=== PATIENT | female | born 1965 | race Caucasian/White ===

== ENCOUNTER 2018-01-16 20:21 | Emergency (ER) | END 2018-01-17 00:50 | disposition home or self-care (01) ==

== ENCOUNTER 2019-01-09 19:40 | Inpatient (IN) | payer MEDICAID ==
[~2019-01-09] VITALS: Ht 162.6 cm; Wt 121.9 kg
[2019-01-09] MEDS ORDERED: PANTOPRAZOLE IV 80 MG in SOD CHLORIDE 0.9% 100 ML IV STA (21:00)
[2019-01-09] MEDS ORDERED: PANTOPRAZOLE IV 80 MG in SOD CHLORIDE 0.9% 100 ML IVPB STA (21:00)
[2019-01-09] MEDS ORDERED: ACETAMINOPHEN 325 MG TAB PO ONE (22:00)
[2019-01-09] MEDS ORDERED: ONDANSETRON 4 MG INJ IV PRN ×2 (22:30→23:30)
[2019-01-09] MEDS ORDERED: ACETAMINOPHEN 325 MG TAB PO PRN (22:30)
--- NOTE | 2019-01-09 22:33 | ERD ---
ER Documentation Chief Complaint Chief Complaint ABD PAIN AND SWELLING WITH INTERMITTENT HEMATEMESIS TODAY. HPI 53-year-old female presents with family members for persistent epigastric abdominal pain and vomiting. The patient has had 2-3 episodes of gross hematemesis with clots over the past 24 hours. She denies melena. Patient describes a history of peptic ulcer disease, no NSAID abuse or alcohol abuse. She denies any chest pain or pressure. No fevers or chills. Pain is noted to be 5 out of 10 and sharp. ROS All systems reviewed and are negative except as per history of present illness. Allergies Allergies: Coded Allergies: ceftriaxone sodium (Verified Allergy, Intermediate, SWELLING, 07/07/13) Penicillins (Verified Allergy, Mild, SWOLLEN, 07/07/13) Uncoded Allergies: ROCHPHIN (Allergy, CANT BREATH, 05/05/13) PMhx/Soc History of Surgery: Yes (CHOLECYSTECTOMY) Anesthesia Reaction: No Hx Neurological Disorder: No Hx Respiratory Disorders: No Hx Cardiac Disorders: No Hx Psychiatric Problems: No Hx Miscellaneous Medical Probl: No Hx Alcohol Use: No Hx Substance Use: No Hx Tobacco Use: No Smoking Status: Never smoker FmHx Family History: No diabetes Physical Exam Vitals Vital Signs Date Temp Pulse Resp B/P (MAP) Pulse Ox O2 O2 Flow FiO2 Time Delivery Rate 01/09/19 85 18 143/84 100 Room Air 20:45 (103) 01/09/19 98.0 90 18 155/77 98 19:53 (103) Physical Exam General: Well developed, well nourished, no acute distress Head: Normocephalic, atraumatic. Eyes: Pupils equally reactive, EOM intact ENT: Moist mucous membranes Neck: Supple, no lymphadenopathy Respiratory: Lungs clear bilaterally, no distress Cardiovascular: RRR, no murmurs, rubs, or gallops Abdominal: Soft, tenderness to the epigastrium, non-distended, no peritoneal signs : Deferred MSK: No edema, no unilateral swelling, 5/5 strength Neurologic: Alert and oriented, moving all extremities, normal speech, no focal weakness, no cerebellar signs Skin: No rash Psych: Normal mood Result Diagram: 01/09/19211701/09/192117 Results 24 hrs Laboratory Tests Test 01/09/19 21:18 White Blood Count 10.1 10^3/ul Red Blood Count 4.93 10^6/ul Hemoglobin 13.6 g/dl Hematocrit 41.2 % Mean Corpuscular Volume 83.6 fl Mean Corpuscular Hemoglobin 27.6 pg Mean Corpuscular Hemoglobin Concent 33.0 g/dl Red Cell Distribution Width 13.8 % Platelet Count 321 10^3/UL Mean Platelet Volume 10.0 fl Immature Granulocytes % 0.500 % Neutrophils % 57.6 % Lymphocytes % 32.0 % Monocytes % 7.4 % Eosinophils % 2.1 % Basophils % 0.4 % Nucleated Red Blood Cells % 0.0 /100WBC Immature Granulocytes # 0.050 10^3/ul Neutrophils # 5.8 10^3/ul Lymphocytes # 3.2 10^3/ul Monocytes # 0.8 10^3/ul Eosinophils # 0.2 10^3/ul Basophils # 0.0 10^3/ul Nucleated Red Blood Cells # 0.0 10^3/ul Prothrombin Time 11.8 Sec Prothrombin Time Ratio 0.9 INR International Normalized Ratio 0.86 Activated Partial Thromboplast Time 28.5 Sec Sodium Level 140 mmol/L Potassium Level 4.1 mmol/L Chloride Level 105 mmol/L Carbon Dioxide Level 29 mmol/L Anion Gap 6 Blood Urea Nitrogen 12 mg/dl Creatinine 0.52 mg/dl Est Glomerular Filtrat Rate mL/min > 60 mL/min Glucose Level 113 mg/dl Calcium Level 10.2 mg/dl Total Bilirubin 0.2 mg/dl Direct Bilirubin 0.00 mg/dl Indirect Bilirubin 0.2 mg/dl Aspartate Amino Transf (AST/SGOT) 22 IU/L Alanine Aminotransferase (ALT/SGPT) 22 IU/L Alkaline Phosphatase 150 IU/L Troponin I < 0.012 ng/ml Total Protein 7.6 g/dl Albumin 4.0 g/dl Globulin 3.60 g/dl Albumin/Globulin Ratio 1.11 Current Medications Medications Dose Sig/Fede Start Time Status Last (Trade) Ordered Route PRN Stop Time Admin Dose Reason Admin Pantoprazole 100 ml @ ONCE STAT 01/09/19 DC 01/09/19 80 mg/Sodium 400 mls/hr IVPB 21:00 21:33 Chloride 01/09/19 21:14 Pantoprazole 100 ml @ ONCE STAT 01/09/19 01/09/19 80 mg/Sodium 10 mls/hr IV 21:00 21:32 Chloride 01/10/19 06:59 650 mg ONCE ONCE 01/09/19 DC 01/09/19 Acetaminophen PO 22:00 22:00 (Tylenol 01/09/19 22:01 Tab) Procedures/MDM EKG, MONITORS, & DIAGNOSTIC IMAGING: EKG: I reviewed and interpreted a 12-lead EKG. Rhythm: Normal sinus rhythm ST Changes: No contiguous ST segment elevations T waves: No contiguous T wave inversions Impression: No evidence of acute cardiac ischemia LAB INTERPRETATION: I reviewed the laboratory testing and it shows no evidence of acute process MEDICAL DECISION MAKING: The patient has gross hematemesis with epigastric abdominal pain raising the concern for bleeding ulcer. No melena present. Patient is hemodynamically stable. While the patient is hemodynamically stable with a normal hemoglobin and normal being her creatinine ratio I am concerned about the patient's gross hematemesis with known history of peptic ulcer disease. I believe given the patient's limited access to primary care inpatient hospitalization for serial hemoglobin values, GI consultation and endoscopy would be most appropriate. ER COURSE: * PPI bolus and drip initiated. Patient is hemodynamic is stable does not require blood transfusion. CONSULTATION: GI consultation to be performed by admitting team DISPOSITION PLAN: Accepting care team and consultations: I discussed the current laboratory data, diagnostic imaging and emergency care provided. Admitting team: Dr. Tan . Admitting team indication: Insurance directed Departure Diagnosis: Primary Impression: Hematemesis Nausea presence: with nausea Qualified Codes: K92.0 - Hematemesis Additional Impression: Upper GI bleeding Condition: Stable PALOMA ESPINO MD Jan 09, 2019 22:33
[2019-01-09] MEDS ORDERED: NACL 0.9% 3 ML SYG IV SCH (23:30)
--- NOTE | 2019-01-09 23:31 | HP ---
Date/Time of Note Date/Time of Note DATE: 01/09/19 TIME: 23:31 Assessment/Plan VTE Prophylaxis SCD contraindicated: low risk/ambulating Pharmacological prophylaxis: NA/contraindicated Pharm contraindication: bleeding Lines/Catheters IV Catheter Type (from Nrsg): Saline Lock Assessment/Plan Assessment/Plan 1. Hematemesis -Suspect from bleeding gastric ulcer -PPI -GI consult 2. Epigastric abdominal pain: See #1 3. Morbid obesity: BMI 46 -Weight reduction advised Result Diagram: 01/09/19211701/09/192117 Results 24hrs Laboratory Tests Test 01/09/19 21:18 White Blood Count 10.1 Red Blood Count 4.93 Hemoglobin 13.6 Hematocrit 41.2 Mean Corpuscular Volume 83.6 Mean Corpuscular Hemoglobin 27.6 L Mean Corpuscular Hemoglobin Concent 33.0 Red Cell Distribution Width 13.8 Platelet Count 321 Mean Platelet Volume 10.0 Immature Granulocytes % 0.500 H Neutrophils % 57.6 Lymphocytes % 32.0 Monocytes % 7.4 Eosinophils % 2.1 Basophils % 0.4 Nucleated Red Blood Cells % 0.0 Immature Granulocytes # 0.050 H Neutrophils # 5.8 Lymphocytes # 3.2 H Monocytes # 0.8 Eosinophils # 0.2 Basophils # 0.0 Nucleated Red Blood Cells # 0.0 Prothrombin Time 11.8 L Prothrombin Time Ratio 0.9 INR International Normalized Ratio 0.86 Activated Partial Thromboplast Time 28.5 Sodium Level 140 Potassium Level 4.1 Chloride Level 105 Carbon Dioxide Level 29 Anion Gap 6 Blood Urea Nitrogen 12 Creatinine 0.52 Est Glomerular Filtrat Rate mL/min > 60 Glucose Level 113 Calcium Level 10.2 Total Bilirubin 0.2 Direct Bilirubin 0.00 Indirect Bilirubin 0.2 Aspartate Amino Transf (AST/SGOT) 22 Alanine Aminotransferase (ALT/SGPT) 22 Alkaline Phosphatase 150 H Troponin I < 0.012 Total Protein 7.6 Albumin 4.0 Globulin 3.60 H Albumin/Globulin Ratio 1.11 HPI/ROS Admit Date/Time Admit Date/Time Jan 09, 2019 at 22:30 Hx of Present Illness This is a 53-year-old female with a history of hypertension, CVA, gastritis who presents the ER complaining of abdominal pain and vomiting blood. Abdominal pain is mainly localized in the epigastric area with radiation to her back. She also reported vomiting blood x 2. Reported history of hematemesis about 8 years ago. At that time she underwent EGD was a finding of gastritis. Daughter is also at the bedside who helped with the history taking, although with very minimal input. Who presents the ER, vitals stable. Hemoglobin 13.6. PMH/Family/Social Past Medical History Medical History: other (See HPI) Medications Current Medications Pantoprazole 80 mg/Sodium Chloride 100 ml @ 10 mls/hr ONCE STAT IV Last administered on 01/09/19at 21:32; Admin Dose 10 MLS/HR; Start 01/09/19 at 21:00; Stop 01/10/19 at 06:59 Ondansetron HCl (Zofran Inj) 4 mg BRIDGE ORDER PRN IV NAUSEA/VOMITING; Start 01/09/19 at 22:30; Stop 01/10/19 at 22:29 Acetaminophen (Tylenol Tab) 650 mg ER BRIDGE PRN PO .MILD PAIN 1-3 OR TEMP; Start 01/09/19 at 22:30; Stop 01/10/19 at 22:29 Coded Allergies: ceftriaxone sodium (Verified Allergy, Intermediate, SWELLING, 07/07/13) Penicillins (Verified Allergy, Mild, SWOLLEN, 07/07/13) Uncoded Allergies: ROCHPHIN (Allergy, CANT BREATH, 05/05/13) Past Surgical History Past Surgical Hx: other (See HPI) Family History Significant Family History: no pertinent family hx Social History Alcohol Use: none Smoking Status: Never smoker Drug Use: none Exam/Review of Systems Vital Signs Vitals Vital Signs Date Temp Pulse Resp B/P (MAP) Pulse Ox O2 O2 Flow FiO2 Time Delivery Rate 01/09/19 98.0 62 19 133/82 99 Room Air 23:06 (99) Exam Constitutional: other (Patient lying in bed. Appears uncomfortable) Head: normocephalic, atraumatic Eyes: EOMI, PERRL Respiratory: clear to auscultation, normal air movement Cardiovascular: regular rate and rhythm, nl pulses Gastrointestinal: soft, other (Epigastric abdominal pain with deep palpation) Extremities: normal pulses HYACINTH VEGA MD Jan 09, 2019 23:31
[2019-01-09 23:50] VITALS: BP 129/62; PULSE 77; RESP 18
[2019-01-10 00:02] VITALS: Ht 162.6 cm; Wt 121.9 kg
[2019-01-10] MEDS ORDERED: OMEP40CA6 PO (00:22)
[2019-01-10] MEDS ORDERED: ALBU90AE INHALATION (00:22)
[2019-01-10] MEDS: morphine 2 MG INJ IV PRN ×3 (00:38→23:22)
[2019-01-10] MEDS: DEXTROSE 5%-0.45% NACL 1,000 ML IV SCH ×4 (00:39→21:34)
[2019-01-10] MEDS: PANTOPRAZOLE 40 MG INJ IV SCH ×2 (06:16→18:18)
[2019-01-10 08:25] VITALS: BP 132/76; PULSE 87; RESP 18
[2019-01-10] MEDS ORDERED: LIDOCAINE/MYLANTA 40 ML BTL PO ONE (10:00)
--- NOTE | 2019-01-10 12:12 | PN ---
Date/Time of Note Date/Time of Note DATE: 01/10/19 TIME: 12:05 Assessment/Plan VTE Prophylaxis Risk score (from Ns)>0 risk: 2 SCD applied (from [facility]): No SCD contraindicated: other Pharmacological prophylaxis: NA/contraindicated Pharm contraindication: bleeding Lines/Catheters IV [facility] Type (from [facility]): Peripheral IV Urinary Cath still in place: No Assessment/Plan Hospital Course S: Per nursing staff patient not having any signs of hematemesis presently. Still waiting for GI consult, and presently patient off the floor at CT scan. O: VS - see below PE: -Unable to be performed today because patient presently off the floor at CT scan Assessment/Plan: 53-year-old female prior history of gastritis and PUD, presents with epigastric pain and hematemesis. 1. Hematemesis -Suspect from bleeding gastric ulcer, given patient's history. Hemoglobin is stable. -For now continue to monitor and continue PPI -Follow-up recommendations from GI consult -Follow-up results of CT abdomen pelvis 2. Epigastric abdominal pain: See #1 3. Morbid obesity: BMI 46 -Counseled on weight reduction -We will also get PT consult Result Diagram: 01/10/19 0446 01/10/19 0446 Results 24hrs Laboratory Tests Test 01/09/19 21:18 01/10/19 04:46 White Blood Count 10.1 9.0 Red Blood Count 4.93 4.76 Hemoglobin 13.6 12.8 Hematocrit 41.2 39.9 Mean Corpuscular Volume 83.6 83.8 Mean Corpuscular Hemoglobin 27.6 L 26.9 L Mean Corpuscular Hemoglobin Concent 33.0 32.1 Red Cell Distribution Width 13.8 13.8 Platelet Count 321 320 Mean Platelet Volume 10.0 10.2 Immature Granulocytes % 0.500 H 0.400 Neutrophils % 57.6 56.2 Lymphocytes % 32.0 33.0 Monocytes % 7.4 7.1 Eosinophils % 2.1 3.0 Basophils % 0.4 0.3 Nucleated Red Blood Cells % 0.0 0.0 Immature Granulocytes # 0.050 H 0.040 H Neutrophils # 5.8 5.0 Lymphocytes # 3.2 H 3.0 H Monocytes # 0.8 0.6 Eosinophils # 0.2 0.3 Basophils # 0.0 0.0 Nucleated Red Blood Cells # 0.0 0.0 Prothrombin Time 11.8 L Prothrombin Time Ratio 0.9 INR International Normalized Ratio 0.86 Activated Partial Thromboplast Time 28.5 Sodium Level 140 142 Potassium Level 4.1 3.8 Chloride Level 105 104 Carbon Dioxide Level 29 30 Anion Gap 6 8 Blood Urea Nitrogen 12 11 Creatinine 0.52 0.49 Est Glomerular Filtrat Rate mL/min > 60 > 60 Glucose Level 113 120 Calcium Level 10.2 9.6 Total Bilirubin 0.2 0.4 Direct Bilirubin 0.00 0.00 Indirect Bilirubin 0.2 0.4 Aspartate Amino Transf (AST/SGOT) 22 24 Alanine Aminotransferase (ALT/SGPT) 22 21 Alkaline Phosphatase 150 H 117 Troponin I < 0.012 Total Protein 7.6 6.8 Albumin 4.0 3.6 Globulin 3.60 H 3.20 Albumin/Globulin Ratio 1.11 1.12 Phosphorus Level 3.5 Magnesium Level 2.1 Exam/Review of Systems Exam Vitals Vital Signs Date Temp Pulse Resp B/P (MAP) Pulse Ox O2 O2 Flow FiO2 Time Delivery Rate 01/10/19 98.0 87 18 132/76 94 Room Air 08:25 (94) Intake and Output 01/09/19 01/09/19 01/10/19 1515:00 23:00 07:00 IntakeIntake Total 920 ml BalanceBalance 920 ml Results Results 24hrs Laboratory Tests Test 01/09/19 21:18 01/10/19 04:46 White Blood Count 10.1 9.0 Red Blood Count 4.93 4.76 Hemoglobin 13.6 12.8 Hematocrit 41.2 39.9 Mean Corpuscular Volume 83.6 83.8 Mean Corpuscular Hemoglobin 27.6 L 26.9 L Mean Corpuscular Hemoglobin Concent 33.0 32.1 Red Cell Distribution Width 13.8 13.8 Platelet Count 321 320 Mean Platelet Volume 10.0 10.2 Immature Granulocytes % 0.500 H 0.400 Neutrophils % 57.6 56.2 Lymphocytes % 32.0 33.0 Monocytes % 7.4 7.1 Eosinophils % 2.1 3.0 Basophils % 0.4 0.3 Nucleated Red Blood Cells % 0.0 0.0 Immature Granulocytes # 0.050 H 0.040 H Neutrophils # 5.8 5.0 Lymphocytes # 3.2 H 3.0 H Monocytes # 0.8 0.6 Eosinophils # 0.2 0.3 Basophils # 0.0 0.0 Nucleated Red Blood Cells # 0.0 0.0 Prothrombin Time 11.8 L Prothrombin Time Ratio 0.9 INR International Normalized Ratio 0.86 Activated Partial Thromboplast Time 28.5 Sodium Level 140 142 Potassium Level 4.1 3.8 Chloride Level 105 104 Carbon Dioxide Level 29 30 Anion Gap 6 8 Blood Urea Nitrogen 12 11 Creatinine 0.52 0.49 Est Glomerular Filtrat Rate mL/min > 60 > 60 Glucose Level 113 120 Calcium Level 10.2 9.6 Total Bilirubin 0.2 0.4 Direct Bilirubin 0.00 0.00 Indirect Bilirubin 0.2 0.4 Aspartate Amino Transf (AST/SGOT) 22 24 Alanine Aminotransferase (ALT/SGPT) 22 21 Alkaline Phosphatase 150 H 117 Troponin I < 0.012 Total Protein 7.6 6.8 Albumin 4.0 3.6 Globulin 3.60 H 3.20 Albumin/Globulin Ratio 1.11 1.12 Phosphorus Level 3.5 Magnesium Level 2.1 Medications Medication Current Medications Ondansetron HCl (Zofran Inj) 4 mg BRIDGE ORDER PRN IV NAUSEA/VOMITING; Start 01/09/19 at 22:30; Stop 01/10/19 at 22:29 Acetaminophen (Tylenol Tab) 650 mg ER BRIDGE PRN PO .MILD PAIN 1-3 OR TEMP; Start 01/09/19 at 22:30; Stop 01/10/19 at 22:29 Dextrose/Sodium Chloride 1,000 ml @ 100 mls/hr Q10H IV Last administered on 01/10/19at 11:26; Admin Dose 100 MLS/HR; Start 01/09/19 at 23:29 IV Flush (NS 3 ml) 3 ml PER PROTOCOL IV ; Start 01/09/19 at 23:30 Ondansetron HCl (Zofran Inj) 4 mg Q6H PRN IV NAUSEA/VOMITING; Start 01/09/19 at 23:30 Morphine Sulfate (morphine) 2 mg Q4H PRN IV .SEVERE PAIN 7-10 Last administered on 01/10/19at 00:38; Admin Dose 2 MG; Start 01/09/19 at 23:30 Pantoprazole (Protonix Iv) 40 mg BID@0600,1800 IV Last administered on 01/10/19at 06:16; Admin Dose 40 MG; Start 01/10/19 at 06:00 THEE JACOBO Jan 10, 2019 12:12
[2019-01-10 14:39] VITALS: BP 123/77; PULSE 85; RESP 18
[2019-01-10 19:50] VITALS: BP 121/55; PULSE 83; RESP 18
[2019-01-11 00:39] VITALS: BP 102/55; PULSE 84; RESP 18
[2019-01-11] MEDS: PANTOPRAZOLE 40 MG INJ IV SCH ×2 (05:21→19:00)
[2019-01-11] MEDS: DEXTROSE 5%-0.45% NACL 1,000 ML IV SCH ×2 (07:31→18:56)
[2019-01-11 07:50] VITALS: BP 121/62; PULSE 83; RESP 15
--- NOTE | 2019-01-11 12:15 | PN ---
Date/Time of Note Date/Time of Note DATE: 01/11/19 TIME: 12:13 Assessment/Plan VTE Prophylaxis Risk score (from Ns)>0 risk: 1 SCD applied (from Ns): No SCD contraindicated: other Pharmacological prophylaxis: NA/contraindicated Pharm contraindication: bleeding Lines/Catheters IV [facility] Type (from [facility]): Peripheral IV Urinary Cath still in place: No Assessment/Plan Hospital Course S: Per nursing staff patient not having any signs of hematemesis presently. Still waiting for GI consult, and presently patient off the floor at CT scan. O: VS - see below PE: Constitutional: other (Patient lying in bed. Family at the bedside) Head: normocephalic, atraumatic Eyes: EOMI, PERRL Respiratory: clear to auscultation, normal air movement Cardiovascular: regular rate and rhythm, nl pulses Gastrointestinal: soft, other (some epigastric abdominal pain with deep palpation) Extremities: normal pulses CT scan abdomen pelvis January 10, 2019: IMPRESSION: 1. Status post cholecystectomy. 2. No evidence of bowel obstruction, mass, lymphadenopathy, or acute inflammatory process. Assessment/Plan: 53-year-old female prior history of gastritis and PUD, presents with epigastric pain and hematemesis. 1. Hematemesis -no issues noted while here in the hospital. Hemoglobin has been stable. Suspect symptoms possibly from bleeding gastric ulcer, given patient's history. -For now continue to monitor and continue PPI -Follow-up recommendations from GI consult -still waiting for an official consult 2. Epigastric abdominal pain: See #1 3. Morbid obesity: BMI 46 -Counseled on weight reduction -Follow-up PT consult Result Diagram: 01/10/19 0446 01/10/19 0446 Exam/Review of Systems Exam Vitals Vital Signs Date Temp Pulse Resp B/P (MAP) Pulse Ox O2 O2 Flow FiO2 Time Delivery Rate 01/11/19 98.5 83 15 121/62 96 Room Air 07:50 (81) Intake and Output 01/10/19 01/10/19 01/11/19 1515:00 23:00 07:00 IntakeIntake Total 1300 ml 750 ml OutputOutput Total 400 ml BalanceBalance 1300 ml 350 ml Medications Medication Current Medications Dextrose/Sodium Chloride 1,000 ml @ 100 mls/hr Q10H IV Last administered on 01/11/19at 07:31; Admin Dose 100 MLS/HR; Start 01/09/19 at 23:29 IV Flush (NS 3 ml) 3 ml PER PROTOCOL IV ; Start 01/09/19 at 23:30 Ondansetron HCl (Zofran Inj) 4 mg Q6H PRN IV NAUSEA/VOMITING; Start 01/09/19 at 23:30 Morphine Sulfate (morphine) 2 mg Q4H PRN IV .SEVERE PAIN 7-10 Last administered on 01/10/19at 23:22; Admin Dose 2 MG; Start 01/09/19 at 23:30 Pantoprazole (Protonix Iv) 40 mg BID@0600,1800 IV Last administered on 01/11/19 05:21; Admin Dose 40 MG; Start 01/10/19 at 06:00 THEE JACOBO Jan 11, 2019 12:15
[2019-01-11 13:58] VITALS: BP 104/84; PULSE 77; RESP 15
--- NOTE | 2019-01-11 18:16 | CONS ---
Assessment/Plan Assessment/Plan Assessment/Plan (Daily) Assessment: Hematemesis - likely 2/2 gi bleeding or gastric ulcer Constipation HTN CVA Plan: Will plan for EGD on Sunday. Discussed with the patient the need for EGD upper endoscopy to evaluate her epigastric pain and hematemesis. Discussed benefits, alternatives, risks and potential complications of procedure. She is agreeable to proceed. Continue protonix Add Carafate QID Monitor CBC, thus far no significant anemia. Transfuse for Hgb less than 7.5. Colace BID for constipation Continue to monitor closely. Patient seen in collaboration with Dr. Diamond CC: REBECCA IDAMOND ; Consultation Date/Type/Reason Admit Date/Time Jan 09, 2019 at 22:30 Date of Consultation: Jan 11, 2019 Type of Consult gastroenterology Reason for Consultation hematemesis with concern for gi bleeding Requesting Provider: THEE JACOBO Date/Time of Note DATE: 01/11/19 TIME: 18:02 Hx of Present Illness 53 y/o woman with a history of HTN, CVA, gastritis and PUD who presents with 2 episodes of hematemesis since yesterday. She reports she usually takes omeprazole for epigastric pain, and she also take 600 mg twic daily of ibuprofen when she has abdominal pain. She reports constipation and has not had a bowel movement since last . She otherwise denies any rectal bleeding. She last had an EGD and colonoscopy about 8 years ago. She reports a prior history of cholecystectomy and 2 C-sections. She denies any fevers, chills, weakness, fatigue or palpitations. Constitutional: no complaints Eyes: no complaints ENT: no complaints Respiratory: no complaints Cardiovascular: no complaints Gastrointestinal: pain, constipation, nausea, vomiting Genitourinary: no complaints Musculoskeletal: no complaints Skin: no complaints Neurologic: no complaints Psychological: no complaints, nl mood/affect Past Medical History Medical History: other (See HPI) Home Meds Reported Medications Albuterol Sulfate (Proair Respiclick) 90 Mcg Aer.pow.ba, 2 PUFFS INHALATION Q6 PRN for SHORTNESS OF BREATH, #1 BOTTLE 01/10/19 Omeprazole* (Omeprazole*) 40 Mg Capsule.dr, 40 MG PO DAILY, #30 CAP 01/10/19 Medications Current Medications Dextrose/Sodium Chloride 1,000 ml @ 100 mls/hr Q10H IV Last administered on 01/11/19at 07:31; Admin Dose 100 MLS/HR; Start 01/09/19 at 23:29 IV Flush (NS 3 ml) 3 ml PER PROTOCOL IV ; Start 01/09/19 at 23:30 Ondansetron HCl (Zofran Inj) 4 mg Q6H PRN IV NAUSEA/VOMITING; Start 01/09/19 at 23:30 Morphine Sulfate (morphine) 2 mg Q4H PRN IV .SEVERE PAIN 7-10 Last administered on 01/10/19at 23:22; Admin Dose 2 MG; Start 01/09/19 at 23:30 Pantoprazole (Protonix Iv) 40 mg BID@0600,1800 IV Last administered on 01/11/19at 05:21; Admin Dose 40 MG; Start 01/10/19 at 06:00 Allergies: Coded Allergies: ceftriaxone sodium (Verified Allergy, Intermediate, SWELLING, 07/07/13) Penicillins (Verified Allergy, Mild, SWOLLEN, 07/07/13) Uncoded Allergies: ROCHPHIN (Allergy, CANT BREATH, 05/05/13) Past Surgical History Past Surgical Hx: other (See HPI) Social History Alcohol Use: none Smoking Status: Never smoker Drug Use: none Exam/Review of Systems Exam Vitals Vital Signs Date Temp Pulse Resp B/P (MAP) Pulse Ox O2 O2 Flow FiO2 Time Delivery Rate 01/11/19 98.5 77 15 104/84 100 Room Air 13:58 (91) Intake and Output 01/10/19 01/10/19 01/11/19 1515:00 23:00 07:00 IntakeIntake Total 1300 ml 750 ml OutputOutput Total 400 ml BalanceBalance 1300 ml 350 ml Constitutional: alert, oriented, well developed Psych: no complaints, nl mood/affect Head: normocephalic, atraumatic Eyes: nl conjunctiva ENMT: nl external ears & nose Neck: supple Respiratory: clear to auscultation, normal air movement Cardiovascular: regular rate and rhythm, nl pulses Gastrointestinal: soft, non-tender, other (rotund) Musculoskeletal: nl extremities to inspection Extremities: normal pulses Neurological: nl mental status Results Result Diagram: 01/10/19 0446 01/10/[address] scan abdomen pelvis 01/10/19: IMPRESSION: 1. Status post cholecystectomy. 2. No evidence of bowel obstruction, mass, lymphadenopathy, or acute inflammatory process. Medications Medication Current Medications Dextrose/Sodium Chloride 1,000 ml @ 100 mls/hr Q10H IV Last administered on 01/11/19at 07:31; Admin Dose 100 MLS/HR; Start 01/09/19 at 23:29 IV Flush (NS 3 ml) 3 ml PER PROTOCOL IV ; Start 01/09/19 at 23:30 Ondansetron HCl (Zofran Inj) 4 mg Q6H PRN IV NAUSEA/VOMITING; Start 01/09/19 at 23:30 Morphine Sulfate (morphine) 2 mg Q4H PRN IV .SEVERE PAIN 7-10 Last administered on 01/10/19at 23:22; Admin Dose 2 MG; Start 01/09/19 at 23:30 Pantoprazole (Protonix Iv) 40 mg BID@0600,1800 IV Last administered on 01/11/19at 05:21; Admin Dose 40 MG; Start 01/10/19 at 06:00 DONNA GUTIERREZ NP Jan 11, 2019 18:13
[2019-01-11] MEDS ORDERED: POLYETHYLENE GLYCOL 17 GM PACKET PO PRN (18:30)
[2019-01-11] MEDS: morphine 2 MG INJ IV PRN (19:44)
[2019-01-11 20:06] VITALS: BP 118/75; PULSE 87; RESP 18
[2019-01-11] MEDS: DOCUSATE SODIUM 100 MG CAP PO SCH (21:22)
[2019-01-12 02:55] VITALS: BP 141/70; PULSE 82; RESP 18
[2019-01-12] MEDS: DEXTROSE 5%-0.45% NACL 1,000 ML IV SCH ×2 (06:10→18:13)
[2019-01-12] MEDS: PANTOPRAZOLE 40 MG INJ IV SCH ×2 (06:10→18:13)
[2019-01-12 07:28] VITALS: BP 139/64; PULSE 81; RESP 15
[2019-01-12] MEDS: DOCUSATE SODIUM 100 MG CAP PO SCH ×2 (09:23→22:24)
--- NOTE | 2019-01-12 11:40 | PN ---
Date/Time of Note Date/Time of Note DATE: 01/12/19 TIME: 11:39 Assessment/Plan VTE Prophylaxis Risk score (from Nsg)>0 risk: 2 SCD applied (from Nsg): Yes Pharmacological prophylaxis: other Lines/Catheters IV Catheter Type (from Nrsg): Peripheral IV Urinary Cath still in place: No Assessment/Plan Hospital Course S: No episodes of upper or lower GI bleeding noted overnight. Patient seen by GI team yesterday, awaiting EGD to be performed in the next 24 hours. O: VS - see below PE: Constitutional: other (Patient lying in bed, NAD) Head: normocephalic, atraumatic Eyes: EOMI, PERRL Respiratory: clear to auscultation, normal air movement Cardiovascular: regular rate and rhythm, nl pulses Gastrointestinal: soft, other (some epigastric abdominal pain with deep palpation) Extremities: normal pulses CT scan abdomen pelvis January 10, 2019: IMPRESSION: 1. Status post cholecystectomy. 2. No evidence of bowel obstruction, mass, lymphadenopathy, or acute inflammatory process. Assessment/Plan: 53-year-old female prior history of gastritis and PUD, presents with epigastric pain and hematemesis. 1. Hematemesis -no issues noted while here in the hospital. Hemoglobin has been stable. Suspect symptoms possibly from bleeding gastric ulcer, given patient's history. -For now continue to monitor and continue PPI -Per GI recommendations, planning for EGD in 24 hours, continue current diet for now until tomorrow morning. -Follow GI recommendations 2. Epigastric abdominal pain: See #1 3. Morbid obesity: BMI 46 -Counseled on weight reduction -Follow-up PT consult Result Diagram: 01/10/19 0446 01/10/196 Exam/Review of Systems Exam Vitals Vital Signs Date Temp Pulse Resp B/P (MAP) Pulse Ox O2 O2 Flow FiO2 Time Delivery Rate 01/12/19 97.7 81 15 139/64 100 Room Air 07:28 (89) Intake and Output 01/11/19 01/11/19 01/12/19 1515:00 23:00 07:00 IntakeIntake Total 650 ml 1300 ml 1150 ml BalanceBalance 650 ml 1300 ml 1150 ml Medications Medication Current Medications Dextrose/Sodium Chloride 1,000 ml @ 100 mls/hr Q10H IV Last administered on 01/12/19at 06:10; Admin Dose 100 MLS/HR; Start 01/09/19 at 23:29 IV Flush (NS 3 ml) 3 ml PER PROTOCOL IV ; Start 01/09/19 at 23:30 Ondansetron HCl (Zofran Inj) 4 mg Q6H PRN IV NAUSEA/VOMITING; Start 01/09/19 at 23:30 Morphine Sulfate (morphine) 2 mg Q4H PRN IV .SEVERE PAIN 7-10 Last administered on 01/11/19 19:44; Admin Dose 2 MG; Start 01/09/19 at 23:30 Pantoprazole (Protonix Iv) 40 mg BID@0600,1800 IV Last administered on 01/12/19 06:10; Admin Dose 40 MG; Start 01/10/19 at 06:00 Docusate Sodium (Colace) 100 mg BID PO Last administered on 01/12/19 09:23; Admin Dose 100 MG; Start 01/11/19 at 21:00 Polyethylene Glycol (Miralax) 17 gm DAILY PRN PO CONSTIPATION Last administered on 01/11/19at 18:55; Admin Dose 17 GM; Start 01/11/19 at 18:30 THEE JACOBO Jan 12, 2019 11:40
[2019-01-12 13:33] VITALS: BP 139/85; PULSE 84; RESP 15
--- NOTE | 2019-01-12 14:33 | PN ---
Date/Time of Note Date/Time of Note DATE: 01/12/19 TIME: 14:31 Assessment/Plan VTE Prophylaxis Risk score (from Nsg)>0 risk: 2 SCD applied (from Nsg): Yes Pharmacological prophylaxis: other (scds) Lines/Catheters IV Catheter Type (from Nrsg): Peripheral IV Urinary Cath still in place: No Assessment/Plan Hospital Course Assessment: Hematemesis - likely 2/2 gi bleeding or gastric ulcer Constipation HTN H/o CVA Obesity BMI 46.1 Plan: Will plan for EGD tomorrow Again reviewed benefits, alternatives, risks and potential complications of procedure. all questions answered. She is agreeable to proceed. Continue protonix/Carafate QID Monitor CBC, thus far no significant anemia. Colace BID for constipation Continue to monitor closely. Patient seen in collaboration with Dr. Kitchen Subjective: Course reviewed with nursing staff Patient interviewed and examined All labs, imaging and other results reviewed The patient currently denies overt signs of GI bleed. She denies n/v or abd pain. Constitutional: alert, oriented, well developed Psych: no complaints, nl mood/affect Head: normocephalic, atraumatic Eyes: nl conjunctiva ENMT: nl external ears & nose Neck: supple Respiratory: clear to auscultation, normal air movement Cardiovascular: regular rate and rhythm, nl pulses Gastrointestinal: soft, non-tender, other (rotund) Musculoskeletal: nl extremities to inspection Extremities: normal pulses Neurological: nl mental status Result Diagram: 01/10/1944501/10/19445 Exam/Review of Systems Exam Vitals Vital Signs Date Temp Pulse Resp B/P (MAP) Pulse Ox O2 O2 Flow FiO2 Time Delivery Rate 01/12/19 98.0 84 15 139/85 100 Room Air 13:33 (103) Intake and Output 01/11/19 01/11/19 01/12/19 1515:00 23:00 07:00 IntakeIntake Total 650 ml 1300 ml 1150 ml BalanceBalance 650 ml 1300 ml 1150 ml Medications Medication Current Medications Dextrose/Sodium Chloride 1,000 ml @ 100 mls/hr Q10H IV Last administered on 01/12/19at 06:10; Admin Dose 100 MLS/HR; Start 01/09/19 at 23:29 IV Flush (NS 3 ml) 3 ml PER PROTOCOL IV ; Start 01/09/19 at 23:30 Ondansetron HCl (Zofran Inj) 4 mg Q6H PRN IV NAUSEA/VOMITING; Start 01/09/19 at 23:30 Morphine Sulfate (morphine) 2 mg Q4H PRN IV .SEVERE PAIN 7-10 Last administered on 01/11/19 19:44; Admin Dose 2 MG; Start 01/09/19 at 23:30 Pantoprazole (Protonix Iv) 40 mg BID@0600,1800 IV Last administered on 01/12/19at 06:10; Admin Dose 40 MG; Start 01/10/19 at 06:00 Docusate Sodium (Colace) 100 mg BID PO Last administered on 01/12/19 09:23; Admin Dose 100 MG; Start 01/11/19 at 21:00 Polyethylene Glycol (Miralax) 17 gm DAILY PRN PO CONSTIPATION Last administered on 01/11/19 18:55; Admin Dose 17 GM; Start 01/11/19 at 18:30 SHARON LOMAS Jan 12, 2019 14:33
[2019-01-12 19:32] VITALS: BP 130/75; PULSE 85; RESP 22
[2019-01-13] VITALS (11 sets, daily range): BP systolic 91–179; BP diastolic 44–83; PULSE 72–87; RESP 17–32
[2019-01-13] MEDS: DEXTROSE 5%-0.45% NACL 1,000 ML IV SCH ×2 (05:40→17:29)
[2019-01-13] MEDS: PANTOPRAZOLE 40 MG INJ IV SCH ×2 (06:09→18:21)
[2019-01-13] MEDS: DOCUSATE SODIUM 100 MG CAP PO SCH ×2 (09:10→21:01)
--- NOTE | 2019-01-13 12:01 | PREAC ---
ANDRIA CASTELLANOS 01/13/19 1201: Date/Time of Note Date/Time of Note DATE: 01/13/19 TIME: 12:00 Anesthesia Eval and Record Evaluation Time Pre-Procedure Interview DATE: 01/13/19 TIME: 12:00 Age 53 Sex female NPO: 8 hrs Preoperative diagnosis upper gi bleeding Planned procedure EGD Past Medical History Past Medical History: Includes Cardio: HTN Pulm: Asthma Neuro: CVA GI: GERD, Morbid obesity Surgery & Anesthesia Issues No known issue Meds Anticoagulation: No Beta Suman within 24 hr: No Reason Beta Suman not given: Pt. not on B-Suman Reported Medications Albuterol Sulfate (Proair Respiclick) 90 Mcg Aer.pow.ba, 2 PUFFS INHALATION Q6 PRN for SHORTNESS OF BREATH, #1 BOTTLE 01/10/19 Omeprazole* (Omeprazole*) 40 Mg Capsule.dr, 40 MG PO DAILY, #30 CAP 01/10/19 Current Medications Dextrose/Sodium Chloride 1,000 ml @ 100 mls/hr Q10H IV Last administered on 01/13/19at 05:40; Admin Dose 100 MLS/HR; Start 01/09/19 at 23:29 IV Flush (NS 3 ml) 3 ml PER PROTOCOL IV ; Start 01/09/19 at 23:30 Ondansetron HCl (Zofran Inj) 4 mg Q6H PRN IV NAUSEA/VOMITING; Start 01/09/19 at 23:30 Morphine Sulfate (morphine) 2 mg Q4H PRN IV .SEVERE PAIN 7-10 Last administered on 01/11/19at 19:44; Admin Dose 2 MG; Start 01/09/19 at 23:30 Pantoprazole (Protonix Iv) 40 mg BID@0600,1800 IV Last administered on 01/13/19at 06:09; Admin Dose 40 MG; Start 01/10/19 at 06:00 Docusate Sodium (Colace) 100 mg BID PO Last administered on 01/13/19at 09:10; Admin Dose 100 MG; Start 01/11/19 at 21:00 Polyethylene Glycol (Miralax) 17 gm DAILY PRN PO CONSTIPATION Last administered on 01/11/19at 18:55; Admin Dose 17 GM; Start 01/11/19 at 18:30 Meds reviewed: Yes Allergies Coded Allergies: ceftriaxone sodium (Verified Allergy, Intermediate, SWELLING, 07/07/13) Penicillins (Verified Allergy, Mild, SWOLLEN, 07/07/13) Uncoded Allergies: ROCHPHIN (Allergy, CANT BREATH, 05/05/13) Allergies Reviewed: Yes Labs/Studies Labs Reviewed: Reviewed by anesthesiologist Result Diagram: 01/10/1944501/10/19445 Pre-procedure Exam Last vitals Vital Signs Date Temp Pulse Resp B/P (MAP) Pulse Ox O2 O2 Flow FiO2 Time Delivery Rate 01/13/19 98.2 72 19 121/62 98 08:03 (81) 01/13/19 Room Air 01:58 Airway: Adequate mouth opening Mallampati: Mallampati II Teeth: Normal Lung: Normal Heart: Normal ASA Physical Status ASA physical status: 4 Emergency: None Planned Anesthetic General/MAC: MAC Pre-operative Attestations Prior to commencing anesthesia and surgery, the patient was re-evaluated, there was verification of: *The patient's identity *The results of appropriate recent lab work and preoperative vital signs *The above evaluation not changing prior to induction *Anesthetic plan, risk benefits, alternative and complications discussed with patient/family; questions answered; patient/family understands, accepts and wishes to proceed. HSELLIE CUMMINGS CRNA 01/13/19 1347: Anesthesia Eval and Record Evaluation Age 53 NPO: 8 hrs Preoperative diagnosis gi bleed hematemesis Planned procedure egd Past Medical History Past Medical History: Includes Cardio: HTN, Other (hx cva) GI: GERD, Obesity Meds Anticoagulation: No Beta Suman within 24 hr: No Reason Beta Suman not given: Pt. not on B-Suman Reported Medications Albuterol Sulfate (Proair Respiclick) 90 Mcg Aer.pow.ba, 2 PUFFS INHALATION Q6 PRN for SHORTNESS OF BREATH, #1 BOTTLE 01/10/19 Omeprazole* (Omeprazole*) 40 Mg Capsule.dr, 40 MG PO DAILY, #30 CAP 01/10/19 Meds reviewed: Yes Allergies Coded Allergies: ceftriaxone sodium (Verified Allergy, Intermediate, SWELLING, 07/07/13) Penicillins (Verified Allergy, Mild, SWOLLEN, 07/07/13) Uncoded Allergies: ROCHPHIN (Allergy, CANT BREATH, 05/05/13) Allergies Reviewed: Yes Labs/Studies Result Diagram: 01/10/1944501/10/19445 test: N/A Pre-procedure Exam Airway: Adequate mouth opening, Adequate thyromental dist Mallampati: Mallampati III Teeth: Normal Lung: Normal Heart: Normal ASA Physical Status ASA physical status: 3 Planned Anesthetic General/MAC: MAC Planned Pain Management Parenteral pain med ANDRIA CASTELLANOS Jan 13, 2019 12:01 SHELLIE CUMMINGS CRNA Jan 13, 2019 13:47
[2019-01-13] MEDS ORDERED: LIDOCAINE 100 MG SYRINGE ONE (13:31)
[2019-01-13] MEDS ORDERED: PROPOFOL 40 ML ONE (13:31)
--- NOTE | 2019-01-13 13:53 | HPN ---
Date/Time of Note Date/Time of Note DATE: 01/13/19 TIME: 13:53 Interval H&P Admission Note Pt. seen H&P reviewed: No system changes REBECCA DIAMOND Jan 13, 2019 13:53
--- NOTE | 2019-01-13 14:06 | PAC ---
Date/Time of Note Date/Time of Note DATE: 01/13/19 TIME: 14:04 Post-Anesthesia Notes Post-Anesthesia Note Last documented vital signs Vital Signs Date Temp Pulse Resp B/P (MAP) Pulse Ox O2 O2 Flow FiO2 Time Delivery Rate 01/13/19 98.2 72 19 121/62 98 08:03 (81) 01/13/19 Room Air 01:58 Activity: WNL Respiratory function: WNL Cardiovascular function: WNL Mental status: Baseline Pain reasonably controlled: Yes Hydration appropriate: Yes Nausea/Vomiting absent: Yes Comments 135/63 Spo2 100% RR 12 HR 95 36.8F SHELLIE CUMMINGS CRNA Jan 13, 2019 14:06
--- NOTE | 2019-01-13 16:22 | PN ---
Date/Time of Note Date/Time of Note DATE: 01/13/19 TIME: 16:18 Assessment/Plan VTE Prophylaxis Risk score (from Nsg)>0 risk: 3 SCD applied (from Ns): Yes Pharmacological prophylaxis: NA/contraindicated Pharm contraindication: low risk/ambulating Lines/Catheters IV Catheter Type (from Nrsg): Peripheral IV Urinary Cath still in place: No Assessment/Plan Assessment/Plan 53-year-old morbidly obese woman prior history of gastritis and PUD, presents with epigastric pain and hematemesis. 1. Hematemesis - no issues noted while here in the hospital. Hemoglobin has been stable. - EGD 01/13 with mild gastritis and hiatal hernia - Resume diet. 2. Morbid obesity: BMI 46 -Counseled on weight reduction by Dr. Carmen Result Diagram: 01/10/1944501/10/19445 Subjective 24 Hr Interval Summary Free Text/Dictation No acute overnight events. Patient sitting up in bed, talking to family, feeling well with no complaints. Reports having bowel movement yesterday but didn't look to see if there was melena or hematochezia. Went for EGD today. Exam/Review of Systems Exam Vitals Vital Signs Date Temp Pulse Resp B/P (MAP) Pulse Ox O2 O2 Flow FiO2 Time Delivery Rate 01/13/19 98.2 72 18 113/65 98 Room Air 14:51 (81) Intake and Output 01/12/19 01/12/19 01/13/19 1515:00 23:00 07:00 IntakeIntake Total 350 ml 1380 ml 1600 ml BalanceBalance 350 ml 1380 ml 1600 ml Exam Constitutional: Morbidly obese woman sitting up in bed well appearing Head: normocephalic, atraumatic Eyes: EOMI, PERRL Respiratory: clear to auscultation, normal air movement Cardiovascular: regular rate and rhythm, nl pulses Gastrointestinal: soft, mild epigastric abdominal pain with deep palpation Extremities: normal pulses Medications Medication Current Medications Dextrose/Sodium Chloride 1,000 ml @ 100 mls/hr Q10H IV Last administered on 01/13/19at 05:40; Admin Dose 100 MLS/HR; Start 01/09/19 at 23:29 IV Flush (NS 3 ml) 3 ml PER PROTOCOL IV ; Start 01/09/19 at 23:30 Ondansetron HCl (Zofran Inj) 4 mg Q6H PRN IV NAUSEA/VOMITING; Start 01/09/19 at 23:30 Morphine Sulfate (morphine) 2 mg Q4H PRN IV .SEVERE PAIN 7-10 Last administered on 01/11/19at 19:44; Admin Dose 2 MG; Start 01/09/19 at 23:30 Pantoprazole (Protonix Iv) 40 mg BID@0600,1800 IV Last administered on 01/13/19at 06:09; Admin Dose 40 MG; Start 01/10/19 at 06:00 Docusate Sodium (Colace) 100 mg BID PO Last administered on 01/13/19at 09:10; Admin Dose 100 MG; Start 01/11/19 at 21:00 Polyethylene Glycol (Miralax) 17 gm DAILY PRN PO CONSTIPATION Last administered on 01/11/19at 18:55; Admin Dose 17 GM; Start 01/11/19 at 18:30 ANU QUEVEDO MD Jan 13, 2019 16:22
[2019-01-14 02:02] VITALS: BP 122/72; PULSE 77; RESP 18
[2019-01-14] MEDS: DEXTROSE 5%-0.45% NACL 1,000 ML IV SCH ×2 (03:29→13:29)
[2019-01-14] MEDS: PANTOPRAZOLE 40 MG INJ IV SCH (05:13)
[2019-01-14 08:11] VITALS: BP 122/72; PULSE 84; RESP 18
[2019-01-14] MEDS: DOCUSATE SODIUM 100 MG CAP PO SCH (09:26)
[2019-01-14] MEDS ORDERED: OMEP40CA6 PO (10:05)
--- NOTE | 2019-01-14 10:08 | PDOCDIS ---
Discharge Instructions DIAGNOSIS Discharge Diagnosis Nonspecific gastritis Hiatal hernia CONDITION [id number] Patient Condition: [id number] Good HOME CARE INSTRUCTIONS: [id number] Diet Instructions: [id number] Regular ACTIVITY: [id number] Activity Restrictions: [id number] No Restrictions FOLLOW UP/APPOINTMENTS Follow-up Plan 1. Take all medications as prescribed. Omeprazole should be taken twice daily for one month. 2. See your primary care doctor in 1-2 weeks. 1. [place] todos los medicamentos segn lo prescrito. El omeprazole se debe leann dos veces al da roxana un mes. 2. Consulte a [facility] en 1-2 semanas. ANU QUEVEDO MD Jan 14, 2019 10:08
--- NOTE | 2019-01-14 16:01 | DS ---
Date/Time of Note Date/Time of Note DATE: 01/14/19 TIME: 15:58 Discharge Summary Admission/Discharge Info Admit Date/Time Jan 11, 2019 at 09:24 Discharge Date/Time Jan 14, 2019 at 14:50 Discharge Diagnosis Nonspecific gastritis Hiatal hernia Consults Gastroenterology Procedures 01/13 EGD Hx of Present Illness This is a 53-year-old female with a history of hypertension, CVA, gastritis who presents the ER complaining of abdominal pain and vomiting blood. Abdominal pain is mainly localized in the epigastric area with radiation to her back. She also reported vomiting blood x 2. Reported history of hematemesis about 8 years ago. At that time she underwent EGD was a finding of gastritis. Daughter is also at the bedside who helped with the history taking, although with very minimal input. Who presents the ER, vitals stable. Hemoglobin 13.6. Hospital Course The patient was monitored over the weekend with no further episodes of vomiting or hematemesis. She had a few bowel movements but didn't look to see if there was melena or hematochezia. EGD was done showing moderate gastritis and a hiatal hernia. She will be discharged on PPI BID. Home Meds Active Scripts Omeprazole* (Omeprazole*) 40 Mg Capsule.dr, 40 MG PO BID, #60 CAP Prov:ANU QUEVEDO MD 01/14/19 Reported Medications Albuterol Sulfate (Proair Respiclick) 90 Mcg Aer.pow.ba, 2 PUFFS INHALATION Q6 PRN for SHORTNESS OF BREATH, #1 BOTTLE 01/10/19 Follow-up Plan 1. Take all medications as prescribed. Omeprazole should be taken twice daily for one month. 2. See your primary care doctor in 1-2 weeks. 1. [place] todos los medicamentos segn lo prescrito. El omeprazole se debe leann dos veces al da roxana un mes. 2. Consulte a [facility] en 1-2 semanas. Primary Care Provider [facility]. Time spent on discharge: > 30 minutes ANU QUEVEDO MD Jan 14, 2019 16:01
== END 2019-01-14 14:50 | disposition home or self-care (01) | DRG 378 ==
LOC: E/R 19:40 → MS1 22:30 → OBSVTOIN 01-11 09:24
PROVIDERS: ADMIT Internal Medicine; ATTEND Internal Medicine
PROC: 0DJ08ZZ Inspection of Upper Intestinal Tract, Via Natural or Artificial Opening Endoscopic (ICD-10-PCS; principal; 2019-01-13 13:30)
DX: K29.71 Gastritis, unspecified, with bleeding (principal); Z68.42 Body mass index [BMI] 45.0-49.9, adult; E66.01 Morbid (severe) obesity due to excess calories; Z71.3 Dietary counseling and surveillance; K59.00 Constipation, unspecified; I10 Essential (primary) hypertension; K44.9 Diaphragmatic hernia without obstruction or gangrene; Z90.49 Acquired absence of other specified parts of digestive tract; Z88.0 Allergy status to penicillin; Z86.73 Personal history of transient ischemic attack (TIA), and cerebral infarction without residual deficits
CPT/HCPCS: 36415; 74176; 80053; 83735; 84100; 84484; 85025; 85610; 85730; 86850; 86900; 86901; 93005; 96365; 96376; C9113; G0378; J2001; J2270; J2405; J7042